=== PATIENT | female | born 1990 | race Caucasian/White ===

== ENCOUNTER 2019-07-02 00:12 | Emergency (ER) | payer BC ==
[~2019-07-02] VITALS: Ht 162.6 cm; Wt 54.4 kg
--- OUTSIDE RECORDS SUMMARY | ~2019-07-02 | XMS | Clinical Summary ---
Demographics + + + | Address | [address] | | | [place] [address] | + + + | Home Phone | | + + + | Preferred Language | Unknown | + + + | Marital Status | | + + + | Restorationism Affiliation | Unknown | + + + | Race | Unknown | + + + | Ethnic Group | Unknown | + + + Author + + + | Author | [facility] (Historical as of | | | 04-08-19) | + + + | Organization | [facility] (Historical as of | | | 04-08-19) | + + + | Address | Unknown | + + + | Phone | Unavailable | + + + Support + + + + + | Name | Relationship | Address | Phone | + + + + + | Yo Mckeon | ECON | [address] | | | | | [place] [address] | | + + + + + Care Team Providers + +------+ + | 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 Yemi | PP | Unavailable | + +------+ + Allergies No Known Allergies Current Medications + + +-------+---------+------+------+-------+ | Prescription | Sig. | Disp. | Refills | Star | End | Statu | | | | | | t | Date | s | | | | | | Date | | | + + +-------+---------+------+------+-------+ | | Take 1 tablet by | | | | | Activ | | HYDROcodone-acetamin | mouth every 6 (six) | | | | | e | | yandyzeke (NORCO) 5-325 | hours as needed for | | | | | | | MG per tablet | Pain. | | | | | | + + +-------+---------+------+------+-------+ Active Problems No known active problems Social History + +-------+ +--------+------+ | Tobacco Use | Types | Packs/Day | Years | Date | | | | | Used | | + +-------+ +--------+------+ | Never Smoker | | | | | + +-------+ +--------+------+ + + +---------+ + | Alcohol Use | Drinks/We | oz/Week | Comments | | | ek | | | + + +---------+ + | No | | | | + + +---------+ + + + + | Sex Assigned at | Date Recorded | | | | + + + | Not on file | | + + + Last Filed Vital Signs + + + + | Vital Sign | Reading | Time Taken | + + + + | Blood Pressure | 120/70 | 05/03/2014 3:29 PM PDT | + + + + | Pulse | 86 | 05/03/2014 3:29 PM PDT | + + + + | Temperature | 37.3 C (99.2 F) | 05/03/2014 3:29 PM PDT | + + + + | Respiratory Rate | 17 | 05/03/2014 3:29 PM PDT | + + + + | Oxygen Saturation | 96% | 05/03/2014 3:29 PM PDT | + + + + | Inhaled Oxygen | - | - | | Concentration | | | + + + + | Weight | 77.8 kg (171 lb 8 | 05/03/2014 6:12 AM PDT | | | oz) | | + + + + | Height | 162.6 cm (5' 4") | 05/02/2014 3:13 PM PDT | + + + + | Body Mass Index | 29.44 | 05/03/2014 6:12 AM PDT | + + + + Plan of Treatment Not on file Results Not on filefrom Last 3 Months Insurance + +--------+ +------+-------+ + | Payer | Benefi | Subscriber | Type | Phone | Address | | | t Plan | ID | | | | | | / | | | | | | | Group | | | | | + +--------+ +------+-------+ + | MEDICAID | [employer] | [id number] | | | [address] | | | [place] | | | | [place] | | | [place] | | | | [phone] | | | 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 | | | al/Fam | | 1990 | [phone] | [place] [address] | | | [place] | | | 1978 | | + +--------+ +--------+ + +
--- OUTSIDE RECORDS SUMMARY | ~2019-07-02 | XMS | Clinical Summary ---
Demographics + + + | Address | [address] | | | [place] [address] | + + + | Home Phone | | + + + | Preferred Language | Unknown | + + + | Marital Status | | + + + | Lutheran Affiliation | Unknown | + + + | Race | Unknown | + + + | Ethnic Group | Unknown | + + + Author + + + | Author | [facility] (Historical as of | | | 04-08-19) | + + + | Organization | 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
[~2019-07-02 00:12] MED LIST: ACETAMINOPHEN325 M1 PO; ADVIL200 M1 PO; CLINDAMYCIN HC300 MG PO; NORCO 5-325 TA1 EACH PO; PENICILLIN V P500 MG PO
[2019-07-02] MEDS ORDERED: AMOXICILLIN500 MG PO (00:32)
== END 2019-07-02 00:46 | disposition home or self-care (01) ==
LOC: ED 00:12
DX: H66.92 Otitis media, unspecified, left ear (principal); F17.200 Nicotine dependence, unspecified, uncomplicated
CPT/HCPCS: 99282

== ENCOUNTER 2020-11-19 08:07 | Emergency (ER) | payer BC ==
[~2020-11-19] VITALS: Ht 162.6 cm; Wt 58.7 kg
[~2020-11-19 08:07] MED LIST changes: +AMOXICILLIN500 MG PO
[2020-11-19] MEDS ORDERED: PENICILLIN V P500 MG PO (08:34)
[2020-11-20] MEDS ORDERED: CLEOCIN HCL300 MG PO (12:08)
== END 2020-11-19 08:40 | disposition home or self-care (01) ==
LOC: ED 08:07
DX: K04.7 Periapical abscess without sinus (principal); F17.200 Nicotine dependence, unspecified, uncomplicated
CPT/HCPCS: 99282

== ENCOUNTER 2020-11-20 11:21 | Emergency (ER) | payer BC ==
[~2020-11-20] VITALS: Ht 162.6 cm; Wt 58.5 kg
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
[2020-11-20] MEDS ORDERED: CLEOCIN HCL300 MG PO (12:08)
== END 2020-11-20 12:17 | disposition home or self-care (01) ==
LOC: ED 11:21
DX: K04.7 Periapical abscess without sinus (principal); F17.200 Nicotine dependence, unspecified, uncomplicated
CPT/HCPCS: 99282

== ENCOUNTER 2023-01-25 07:31 | Emergency (ER) | payer OTHER, BC ==
[~2023-01-25] VITALS: Ht 162.6 cm; Wt 57.5 kg
[~2023-01-25 07:31] MED LIST changes: +CLEOCIN HCL300 MG PO
[2023-01-25] MEDS ORDERED: AMOX TR-K CLV1 EAC1 PO (09:18)
[2023-01-25 11:24] VITALS: BP 118/85
== END 2023-01-25 11:25 | disposition home or self-care (01) ==
LOC: ED 07:31
DX: S51.851A Open bite of right forearm, initial encounter (principal); W54.0XXA Bitten by dog, initial encounter; F17.200 Nicotine dependence, unspecified, uncomplicated
CPT/HCPCS: 90471; 90715; 99283-25

== ENCOUNTER 2023-02-28 23:23 | Emergency (ER) | payer BC ==
[~2023-02-28] VITALS: Ht 162.6 cm; Wt 59.3 kg
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
[~2023-02-28 23:23] MED LIST changes: +AMOX TR-K CLV1 EAC1 PO
[2023-03-01] MEDS ORDERED: AMOX TR-K CLV1 EAC1 PO (01:09)
[2023-03-01 01:30] VITALS: BP 134/80
== END 2023-03-01 01:30 | disposition home or self-care (01) ==
LOC: ED 23:23
DX: K04.7 Periapical abscess without sinus (principal); F17.200 Nicotine dependence, unspecified, uncomplicated
CPT/HCPCS: 99282

== ENCOUNTER 2024-07-01 21:53 | Emergency (ER) | payer BC ==
[~2024-07-01] VITALS: Ht 162.6 cm; Wt 61.6 kg
[2024-07-01] MEDS ORDERED: AMOXICILLIN/CLAVULANATE K 875 MG HOME.PACK PO ONE (22:45)
[2024-07-01] MEDS ORDERED: IBUPROFEN 800 MG TAB PO ONE (22:45)
[2024-07-01 22:59] VITALS: BP 114/84
== END 2024-07-01 22:58 | disposition home or self-care (01) ==
LOC: ED 21:53
DX: K04.7 Periapical abscess without sinus (principal); F17.200 Nicotine dependence, unspecified, uncomplicated
CPT/HCPCS: 99282; A9270